=== PATIENT | female | born 1990 | race American Indian/Alaskan Native ===

== ENCOUNTER → 2021-11-28 14:18 | Outpatient (CLI) | payer OTHER, SELFPAY ==
--- NOTE | 2021-11-28 14:21 | DI.RAD.S_ITS ---
PROCEDURE: XR THORACIC SPINE 3V INDICATIONS: disc dz, osteophyte? TECHNIQUE: 3 views of the thoracic spine were acquired. COMPARISON: None. FINDINGS: Bones: No fractures or dislocations. No suspicious bony lesions. 12 pairs of ribs are noted, and appear intact where visualized. Soft tissues: No paravertebral stripe thickening. IMPRESSION: Thoracic spine without acute fracture or malalignment. No significant degenerative change. Dictated by: Hansel Flores M.D. on 11/28/2021 at 16:31 Approved by: Hansel Flores M.D. on 11/28/2021 at 16:32
--- NOTE | 2021-11-28 14:21 | DI.RAD.S_ITS ---
PROCEDURE: XR CERVICAL SPINE 2V OR 3V INDICATIONS: disc dz, osteophyte? TECHNIQUE: 3 view(s) of the cervical spine were acquired. COMPARISON: None. FINDINGS: Bones: No fractures or dislocations to the T1 level. The lateral masses of C1 appear intact on the odontoid view. No suspicious bony lesions. Straightening of cervical lordosis which may be due to patient positioning and/or concurrent muscle spasms. Soft tissues: No prevertebral soft tissue swelling. IMPRESSION: Cervical spine without acute fracture. Mild straightening of normal cervical lordosis likely related to positioning and/or concurrent muscle spasms. No significant spondylitic changes identified. Dictated by: Hansel Flores M.D. on 11/28/2021 at 16:33 Approved by: Hansel Flores M.D. on 11/28/2021 at 16:34
== END ==
PROVIDERS: PCP Pediatrics; Referring Provider Pediatrics; Visit Provider Pediatrics
DX: M54.2 Cervicalgia (principal); R20.0 Anesthesia of skin; G89.29 Other chronic pain
CPT/HCPCS: 72040; 72072

== ENCOUNTER → 2022-02-16 14:23 | Outpatient (CLI) | payer OTHER, SELFPAY | PROVIDERS: Family Provider Pediatrics; PCP Family Medicine; Referring Provider Pediatrics; Visit Provider Pediatrics | DX: R20.0 Anesthesia of skin (principal); M54.2 Cervicalgia; G89.29 Other chronic pain | CPT/HCPCS: 95886; 95912 ==

== ENCOUNTER → 2022-05-13 15:50 | Outpatient (CLI) | payer OTHER, SELFPAY ==
[2022-05-13 16:39] LABS: Influenza A - CEPHEID Flu A POSITIVE (NEGATIVE); Influenza B - CEPHEID Flu B NEGATIVE (NEGATIVE); Respiratory Syncytial Virus Negative (Negative)
[2022-05-13 16:52] LABS: COVID-19 CEPHEID 4-PLEX PCR Negative (Negative)
== END ==
PROVIDERS: Family Provider Pediatrics; PCP Family Medicine; Visit Provider Nurse Practitioner Family
DX: J06.9 Acute upper respiratory infection, unspecified (principal); Z20.822 Contact with and (suspected) exposure to COVID-19
CPT/HCPCS: 0241U

== ENCOUNTER → 2022-10-02 16:54 | Outpatient (CLI) | payer OTHER, SELFPAY ==
[2022-10-02 17:33] LABS: Hemoglobin 10.2 g/dL (12.0-16.0); Mean Corpuscular HGB Conc 31.8 % (30-36); Mean Corpuscular Hemoglobin 22.5 PG (26-34); Mean Corpuscular Volume 70.8 fL (80-100); Platelet Count 339 X10^3/uL (150-400); Red Blood Cell Count 4.53 X10^6/uL (4.0-5.2); Red Cell Distribution Width 17.2 % (11.6-14.8); White Blood Cell Count 5.9 X10^3/uL (4.5-11.0)
[2022-10-02 18:19] LABS: BUN Creatinine Ratio 19.4 (6-22); Blood Urea Nitrogen 14 mg/dL (7-17); Calcium 8.9 mg/dL (8.4-10.2); Carbon Dioxide 27 mmol/L (22-32); Chloride 104 mmol/L (98-107); Estimated Glomerular Filt Rate > 60 mL/min (>60); Glucose 82 mg/dL (70-100); HEMOLYSIS < 15 (0-50); Potassium 3.7 mmol/L (3.4-5.1); Sodium 140 mmol/L (137-145)
[2022-10-02 18:49] LABS: TSH w/ Reflex to FT4 0.82 uIU/mL (0.47-4.68)
[2022-10-04 21:22] LABS: Deamidated Gliadin Ab IgA 3 units (0-19); Deamidated Gliadin Ab IgG 3 units (0-19); Immunoglobulin A,Qn 183 mg/dL (87-352); t-Transglutaminase IgA <2 U/mL (0-3)
[2022-10-06 12:36] LABS: Almond IgE <0.10 kU/L (Class 0); Cashew Nut IgE <0.10 kU/L (Class 0); Codfish Allergy IgE < 0.10 kU/L (Class 0); Egg White IgE <0.10 kU/L (Class 0); Hazelnut IgE <0.10 kU/L (Class 0); Milk IgE <0.10 kU/L (Class 0); Peanut IgE <0.10 kU/L (Class 0); Salmon Allergy IgE < 0.10 kU/L (Class 0); Scallop Allergy IgE < 0.10 kU/L (Class 0); Sesame seed Allergy IgE < 0.10 kU/L (Class 0); Shrimp IgE <0.10 kU/L (Class 0); Soybean IgE <0.10 kU/L (Class 0); Tuna Allergy IgE < 0.10 kU/L (Class 0); Walnut IgE <0.10 kU/L (Class 0); Wheat Allergy IgE < 0.10 kU/L (Class 0)
== END ==
PROVIDERS: Family Provider Pediatrics; PCP Family Medicine; Referring Provider Nurse Practitioner Family; Visit Provider Nurse Practitioner Family
DX: R14.0 Abdominal distension (gaseous) (principal); K21.9 Gastro-esophageal reflux disease without esophagitis; R11.0 Nausea; F41.1 Generalized anxiety disorder; F41.0 Panic disorder [episodic paroxysmal anxiety]
CPT/HCPCS: 36415; 80048; 82784; 83516; 84443; 85027; 86003

== ENCOUNTER → 2022-10-05 15:30 | Outpatient (CLI) | payer OTHER, SELFPAY ==
[2022-10-05 17:00] LABS: Reticulocyte Count, Percent 1.3 % (1.1-2.6)
[2022-10-05 18:00] LABS: HEMOLYSIS < 15 (0-50); Iron 29 ug/dL (37-170)
[2022-10-05 18:12] LABS: Percent Iron Saturation 6 % (15-50); Total Iron Binding Capacity 478 ug/dL (265-497); Transferrin 340 mg/dL (206-381)
[2022-10-05 18:38] LABS: Ferritin 4 ng/mL (6-137)
[2022-10-05 19:09] LABS: Folate 19.8 ng/mL (2.76-20.0); Vitamin B12 594 pg/mL (239-931)
== END ==
PROVIDERS: Family Provider Pediatrics; PCP Family Medicine; Referring Provider Nurse Practitioner Family; Visit Provider Nurse Practitioner Family
DX: D64.9 Anemia, unspecified (principal); N94.4 Primary dysmenorrhea
CPT/HCPCS: 36415; 82607; 82728; 82746; 83540; 83550; 85045

== ENCOUNTER → 2023-01-23 16:30 | Outpatient (CLI) | payer OTHER, SELFPAY ==
--- NOTE | 2023-01-23 16:31 | DI.US.S_ITS ---
PROCEDURE: US PELVIC COMPLETE INDICATIONS: DYSMENORRHEA, MENORRHAGIA, IRREGULAR PERIODS TECHNIQUE: Real-time scanning was performed of the pelvic organs, with image documentation. Additional endovaginal scanning was necessary due to incomplete visualization of the adnexal and endometrial structures by transabdominal scanning. COMPARISON: US, US PELVIC COMPLETE WITH TRANSVAGINAL, 10/16/2017, 11:15. FINDINGS: Uterus: Uterus is retroverted and normal in size at 7.3 x 4.7 x 5.6 cm. The myometrium is heterogeneous. The endometrium measures 8.0 mm combined thickness. Ovaries: The right ovary measures 4.1 x 1.9 x 2.4 cm, with a calculated ovarian volume of 9.6 cc. The left ovary measures 4.0 x 2.4 x 2.5 cm, with a calculated ovarian volume of 12.4 cc. The ovaries have a normal sonographic appearance. Greater than 12 follicles can be seen in each ovary. No adnexal masses are seen. Other: No pathologic free abdominal or pelvic fluid. IMPRESSION: 1. Heterogeneous appearance of the myometrium which can be associated with adenomyosis in the appropriate clinical setting. 2. Greater than 12 sub-5 mm follicular cysts bilaterally which can be associated with polycystic ovarian morphology. We strive to produce accurate, complete, and clear reports of imaging services. To assist us in improving patient care, this report was composed using standard report templates and voice recognition software. Therefore, it may contain abnormal punctuation, insertions and/or omissions. Occasional wrong-word or sound-alike substitutions may occur. Though we review the report and make efforts to correct it, we do recommend that the report be read carefully in proper context to recognize any text inaccuracies. Dictated by: Abhijeet Huang [facility] Interpreted: Jani Jacobo MD on 01/23/2023 at 20:10 Transcribed by: KAROLINE on 01/24/2023 at 8:07 Approved by: Jani Jacobo M.D. on 01/24/2023 at 12:06
== END ==
PROVIDERS: Family Provider Pediatrics; PCP Family Medicine; Referring Provider Family Medicine; Visit Provider Family Medicine
DX: N83.02 Follicular cyst of left ovary (principal); N92.1 Excessive and frequent menstruation with irregular cycle; N83.01 Follicular cyst of right ovary
CPT/HCPCS: 76830; 76856; 93975

== ENCOUNTER 2023-07-26 12:30 | Day surgery (SDC) | payer OTHER, SELFPAY ==
[2023-07-24 15:21] VITALS: BMI 26.7
[2023-07-26] VITALS (7 sets, daily range): BP systolic 117–130; BP diastolic 57–80; PULSE 60–111; RESP 12–16; TEMP 36.1–36.4; O2SAT 95–98; BMI 26.7
--- NOTE | 2023-07-26 | PATH_ITS ---
[facility] Accession Number: [id number] No. of containers..01 Tissue . 01 Material submitted: . uterus - UTERUS AND BILATERAL FALLOPIAN TUBES . 01 Diagnosis: UTERUS AND BILATERAL FALLOPIAN TUBES: Late proliferative phase endometrium. Negative for significant cytologic atypia, hyperplasia, and malignancy. Negative for adenomyosis, on sales representative facility services sections. Benign bilateral fallopian tubes. Minute nodular fragment of tissue with features suggestive of benign fibroma, 4 mm in diameter. Negative for atypia and malignancy. MRV 07/30/2023 1559 Local . 01 Comment: As part of ongoing quality control expert, slide A3 has also been reviewed with STRUCTURAL STEEL DETAILER pathologist, Dr. Sherly Posey, who agrees with the interpretation. . 01 Electronically signed: . Timothy Mitchell MD, Pathologist NPI- [id number] . 01 Gross description: . The specimen is received in formalin labeled with the patient's name, , and uterus and bilateral fallopian tubes, and consists of multiple morcellated fragments of pink-breaux cervical tissue aggregating to 11.4 x 7.8 x 3.7 cm and weighing 67 grams. The serosal surfaces are pink-breaux, smooth, and unremarkable. A cervix is not identified. A scanty amount of possible endometrium is noted measuring 0.2 cm in thickness with an underlying myometrium measuring up to 2.3 cm in thickness. The cut surfaces are pink-breaux and trabecular with no leiomyomatous nodules or other abnormalities seen. . Also received in the container are two detached, unoriented, violaceous, fimbriated fallopian tubes. The first measures 5.5 cm in length and 0.7 cm in diameter. The second measures 7.7 cm in length and up to 0.7 cm in diameter. A single firm white paratubal nodule is noted measuring 0.4 cm in greatest dimension. . Mirror Department Supervisor sections are submitted as follows: A1-A2: Possible endometrium with underlying myometrium. A3: First fallopian tube, fimbriae, and paratubal nodule, entirely submitted. A4: Second fallopian tube, fimbriae, entirely submitted. ([id number]) /JORDAN 07/30/2023 1559 Local . 01 Pathologist provided ICD-10: N92.1, Z86.2 . 01 CPT . 289115 Specimen Comment: A courtesy copy of this report has been sent to [phone] Performed at: 01 [facility] [address] [place] [address] Suite [facility], [place], [place] [id number] MD Mike Hsieh MD Phone: [phone]
--- NOTE | 2023-07-26 12:39 | PM.GYNHP.1 ---
History of Present Illness History of Present Illness Narrative: Adamaris Powers is a 32 year old female [facility] Medical History Chronic neck pain Encounter for well adult exam without abnormal findings Generalized anxiety disorder with panic attacks Iron deficiency anemia Left arm numbness PCOS (polycystic ovarian syndrome) Primary dysmenorrhea Social History household members: spouse Smoking Status: Former smoker Tobacco: How many years used: 2 alcohol intake: current substance use type: does not use Meds Home Medications and Allergies Home Medications Medication Instructions Recorded Confirmed Type oxycodone 5 mg tablet 5 mg PO Q4H PRN pain #14 tabs 07/23/23 07/23/23 Rx Allergies Allergy/AdvReac Type Severity Reaction Status Date / Time sulfamethoxazole Allergy Mild Hives Verified 07/23/23 16:01 [From Bactrim] trimethoprim [From Bactrim] Allergy Mild Hives Verified 07/23/23 16:01
[2023-07-26] MEDS: LACTATED RINGERS 1,000 ML 42 ML IV ×2 (13:12→14:44)
[2023-07-26] MEDS: ACETAMINOPHEN 325 MG TABLET 975 MG PO (13:21)
--- NOTE | 2023-07-26 14:22 | PM.PREOP ---
Pre-operative Note Interval Note History & Physical reviewed/Exam performed by Physician: Yes Changes to H&P: No H&P completed within 30 days and has changed as indicated here:: 07/23/23
[2023-07-26] MEDS: SCOPOLAMINE 1 PATCH TOP (14:41)
[2023-07-26] MEDS: LACTATED RINGERS 1,000 ML 21 ML IV (14:45)
--- NOTE | 2023-07-26 15:28 | SUR.OPER ---
Lithotomy on padded OR bed. [place] Pad Positioner under torso. Head on pillow, arms padded and tucked at sides. Legs secured in padded yellow fins stirrups.
[2023-07-26] MEDS: BUPIVACAINE 0.5% (PF) 30 ML, EPINEPHrine 0.15 MG INJ (15:41)
[2023-07-26] MEDS: CEFAZOLIN 2 GM/100 ML PREMIX 100 ML IV (15:47)
--- NOTE | 2023-07-26 16:27 | PM.GYNOP.1 ---
Operative Date/Time/Diagnoses Date of procedure: 07/26/23 Time of procedure: 16:27 Pre-op diagnosis: Dysmenorrhea Menometrorrhagia Post-op diagnosis: same Procedure & Clinicians Procedure: Procedures Operation Date: 07/26/23 13:45 Actual Procedure Side Surgeon p Laparoscopic Supracervical Hysterectomy with bilateral salpingectomies, fulguration of endometriosis Not Applicable Tara Mitchell MD Indications: 32-year-old 0 with primary dysmenorrhea and menometrorrhagia. Family history of endometriosis. Surgeon: Tara Mitchell Ice Cream Truck Driver: Nicole Martinez Anesthesia Type: General and Local Operative Notes Findings: 7 week size anteverted uterus Normal tubes and ovaries Normal liver and gallbladder Normal appendix Endometriosis in the posterior cul-de-sac Closure Type: primary Specimen(s): left tube, right tube and uterus Applied: catheter (Removed at the end of the case) Estimated blood loss (mL): 10 Blood products transfused: none Procedure in detail: The patient was taken to the operating room where she was placed in the dorsal supine position. After adequate general endotracheal anesthesia was achieved, she was placed in the dorsal lithotomy position, and prepped and draped in the usual sterile fashion. A time-out was performed. A bivalve speculum was placed into the vagina and the anterior lip of the cervix grasped with a single-tooth tenaculum. The cervical os was sequentially dilated until the Zumi uterine manipulator could pass easily into the endometrial cavity. The single-tooth tenaculum was removed from the anterior lip of the cervix. The bivalve speculum was removed from the vagina. Attention was turned to the abdomen where 6 cc of 0.5% Marcaine with epinephrine were injected in the umbilical fold. A 5 mm incision was made. The Veress needle was placed into the peritoneal cavity, and its placement confirmed by aspiration and drop test. The abdominal cavity was insufflated with 3.2 L of CO2. The Veress needle was removed, and a 5 mm trocar was placed without difficulty. Two other 5 mm trocars were placed after 6 cc of 0.5% Marcaine with epinephrine were injected and 5 mm incisions were made. These were 4 cm lateral to the midline at the level of the umbilicus. Abdomen and pelvis were examined with findings noted above. The right tube was grasped with an atraumatic grasper. The mesosalpinx was cauterized and cut with the power seal, all the way down to the cornua of the uterus. The tube was amputated at the cornua, and the tube removed through the side trocar. The utero-ovarian vessels were cauterized and cut with the power seal. The broad ligament and round ligament were cauterized and cut with the power seal. The bladder flap was created using cautery and cut with the power seal. The uterine arteries on the right side were cauterized and cut. All of this was repeated on the patient's left side. The Marilyn loop was placed around the cervix 2 cm above the uterosacral ligaments. The Zumi uterine manipulator was removed from the uterus and a moistened sponge stick placed into the vagina. The uterus was amputated from the cervix. No bleeding was noted. The spatula cautery was used to cauterize the endocervical canal and the endometriosis lesions in the posterior cul-de-sac. 6 cc of 0.5% Marcaine with epinephrine were injected in the midline above the pubic symphysis. A 12 mm incision was made. A 12 mm trocar was placed under direct visualization. A large endobag was placed into the peritoneal cavity. The uterus was placed into the bag. The trocar was removed. The edges of the bag were brought up through the skin. Using the Grace scissors, the fascia was slightly extended. The uterus was grasped with a Jenni. The small Juno was placed into the bag. The uterus was morcellated in approximately 4 pieces. The bag and the Juno were removed from the incision. The fascia was reapproximated using 0 Vicryl in a running fashion. Two simple interrupted sutures with 3-0 Vicryl were placed in the subcutaneous layer. The abdomen was re-insufflated with carbon dioxide gas. There was no bleeding noted. 20 cc of 0.2% ropivacaine were placed over the pedicles. The instruments were removed from the abdomen. The CO2 was allowed to escape. The incisions were closed with 4-0 Monocryl in a subcuticular fashion. Steri-Strips and Allevyn dressings were placed. The moistened sponge stick was removed from the vagina. Sponge, lap, and instrument counts were correct x2. The patient tolerated the procedure well, and was taken to PACU in stable condition. Complications: none Post-operative Condition: stable Disposition: PACU Plan for aftercare: Home after recovery
[2023-07-26] MEDS: OXYCODONE IR 5 MG TABLET PO (16:39)
== END 2023-07-26 17:09 | disposition home or self-care (01) ==
LOC: OR 12:38 → AC 12:39 → OR 12:40
PROVIDERS: Family Provider Pediatrics; PCP Family Medicine; Referring Provider Obstetrics & Gynecology; Visit Provider Obstetrics & Gynecology
PROC: 0UT94ZL Resection of Uterus, Supracervical, Percutaneous Endoscopic Approach (ICD-10-PCS; CPT 58542; principal; 2023-07-26 13:45)
DX: N92.1 Excessive and frequent menstruation with irregular cycle (principal); N94.6 Dysmenorrhea, unspecified; N80.329 Endometriosis of the posterior cul-de-sac, unspecified depth
CPT/HCPCS: 58542; 58662; J0171; J0690; J1100; J1170; J1885; J2250; J2405; J2704; J2765; J3010; J3490

== ENCOUNTER → 2024-01-23 15:19 | Outpatient (CLI) | payer OTHER, SELFPAY ==
--- NOTE | 2024-01-23 15:19 | DI.US.S_ITS ---
PROCEDURE: US ABDOMEN LIMITED INDICATIONS: BILIARY COLIC, ACID REFLUX TECHNIQUE: Real-time scanning was performed of the abdominal and retroperitoneal organs, with image documentation. COMPARISON: None. FINDINGS: Liver: Measures 14.4 cm. Anterior right lobe of the liver echogenic heterogeneous mass measuring 1.6 x 1.4 x 1.3 cm. Gallbladder: Nondilated. Small gallbladder polyp measuring 0.2 cm. No further follow-up required. Normal gallbladder wall thickness. No pericholecystic fluid. Negative sonographic Ramos's sign. Biliary ducts: Intrahepatic bile ducts are non-dilated. Extrahepatic bile duct caliber measures 4 mm. Normal is 6-7 mm or less in diameter, or 10 mm or less post-cholecystectomy. Pancreas: Visualized portions of the pancreas are sonographically normal. Miscellaneous: No free abdominal fluid. IMPRESSION: 1. Echogenic mass in the liver measuring 1.4 cm. This could represent a benign hemangioma. -Recommend more definitive characterization with multiphase liver CT or MRI. 2. No acute cholecystitis. No definite gallstones. 3. Tiny gallbladder polyp measuring 0.2 cm. No further imaging follow-up required. Dictated by: Lee Pepper M.D. on 01/24/2024 at 14:50 Approved by: Lee Pepper M.D. on 01/24/2024 at 14:53
== END ==
PROVIDERS: Family Provider Pediatrics; PCP Family Medicine; Referring Provider Family Medicine; Visit Provider Family Medicine
DX: K80.50 Calculus of bile duct without cholangitis or cholecystitis without obstruction (principal); K21.9 Gastro-esophageal reflux disease without esophagitis; K76.9 Liver disease, unspecified
CPT/HCPCS: 76705

== ENCOUNTER → 2024-01-30 14:15 | Outpatient (CLI) | payer OTHER, SELFPAY ==
--- NOTE | 2024-01-30 14:16 | DI.CT.S_ITS ---
PROCEDURE: CT ABDOMEN LIVER PROTOCOL INDICATIONS: Liver mass seen on US TECHNIQUE: 4 phase scanning was performed. Non-contrast 5 mm axial sections acquired from the diaphragm to the iliac crests. Following the administration of intravenous contrast, 5 mm thick arterial-phase, portal venous-phase, and 5-minute delayed phase images were acquired through the liver. 5 mm thick coronal and sagittal reformats were performed. For radiation dose reduction, the following was used: automated exposure control, adjustment of mA and/or kV according to patient size. COMPARISON: [facility], US, US ABDOMEN LIMITED, 01/23/2024, 15:27. FINDINGS: Image quality: Excellent. Lower chest: Unremarkable. ABDOMEN: Liver: Elongation of the left hepatic lobe. Otherwise normal liver morphology and smooth margin. 1.1 x 1.0 cm hepatic hypodensity present laterally in segment 5/8 demonstrates nodular and wispy enhancement on arterial phase and homogeneous mild diffuse enhancement on venous phase. It follows blood pool density and is barely visible on delayed phase imaging. This probably corresponds to the ultrasound finding is consistent with a benign hemangioma. No other liver lesions. Gallbladder: Phrygian cap morphology. Otherwise normal gallbladder. Biliary ducts: No biliary dilation. Pancreas: Normal size and morphology without visible ductal dilatation or inflammation. Spleen: Size is within normal limits. Adrenal Glands: No adrenal nodules. Kidneys and Ureters: Symmetric enhancement. No nephrolithiasis or hydronephrosis. No hydroureter. Stomach and Bowel: Stomach and visible bowel loops are within normal limits. Peritoneum: No abnormal intraperitoneal fluid. No free air. Ventral Wall: No hernia. Abdominal Nodes: No retroperitoneal or mesenteric adenopathy by size criteria. Vessels: The abdominal aorta, IVC, and portal vein are of normal caliber. PELVIS: Pelvic Organs: Unremarkable. Bladder: Unremarkable. Pelvic Nodes: No enlarged lymph nodes. Miscellaneous: No inguinal hernias are seen. Bones: No aggressive osseous abnormality. IMPRESSION: Findings of a benign hemangioma in the liver corresponding to the ultrasound finding. No other suspicious liver lesion. Dictated by: Luisa Leonard M.D. on 01/30/2024 at 19:21 Approved by: Luisa Leonard M.D. on 01/30/2024 at 19:28
== END ==
PROVIDERS: Family Provider Pediatrics; PCP Family Medicine; Referring Provider Family Medicine; Visit Provider Family Medicine
DX: R16.0 Hepatomegaly, not elsewhere classified (principal); D18.09 Hemangioma of other sites
CPT/HCPCS: 74170

== ENCOUNTER → 2024-06-12 13:12 | Outpatient (CLI) | payer OTHER, SELFPAY ==
[2024-06-12 14:04] LABS: Add Manual Diff / Slide Review NO; Basophils Absolute Auto 0 /uL (0-100); Basophils Percent Auto 0.5 % (0-2); Eosinophils Absolute Auto 200 /uL (0-450); Eosinophils Percent Auto 2.2 % (2-4); Hematocrit 40.6 % (36-46); Hemoglobin 13.8 g/dL (12.0-16.0); Lymphocytes Absolute Auto 2100 /uL (1100-4500); Lymphocytes Percent Auto 24.5 % (25-40); Mean Corpuscular HGB Conc 33.9 % (30-36); Mean Corpuscular Volume 85.5 fL (80-100); Monocytes Absolute Auto 700 /uL (0-900); Monocytes Percent Auto 7.7 % (3-14); Neutrophils Absolute Auto 5500 /uL (1500-7000); Neutrophils Percent Auto 65.1 % (50-75); Platelet Count 386 X10^3/uL (150-400); Red Blood Cell Count 4.75 X10^6/uL (4.0-5.2); Red Cell Distribution Width 13.7 % (11.6-14.8); White Blood Cell Count 8.4 X10^3/uL (4.5-11.0)
[2024-06-12 14:11] LABS: Reticulocyte Count, Percent 1.6 % (1.1-2.6)
[2024-06-12 14:24] LABS: HEMOLYSIS < 15 (0-50); Iron 117 ug/dL (37-170)
[2024-06-12 15:51] LABS: Percent Iron Saturation 36 % (15-50); Total Iron Binding Capacity 321 ug/dL (265-497); Transferrin 277 mg/dL (206-381)
== END ==
LOC: LAB 13:14
PROVIDERS: Family Provider Pediatrics; PCP Family Medicine; Referring Provider Family Medicine; Visit Provider Family Medicine
DX: D50.9 Iron deficiency anemia, unspecified (principal); R53.83 Other fatigue
CPT/HCPCS: 36415; 83540; 83550; 85025; 85045

== ENCOUNTER 2024-07-30 02:35 | Emergency (ER) | payer OTHER, SELFPAY ==
[2024-07-30 02:42] VITALS: BP 139/96; PULSE 81; RESP 17; TEMP 36.5; O2SAT 97; BMI 28.1
--- NOTE | 2024-07-30 03:11 | ED_ITS ---
HPI - Headache General Chief Complaint: Headache Stated Complaint: migraine, vertigo, nausea Time Seen by Provider: 07/30/24 03:11 Mode of arrival: Ambulatory History of Present Illness HPI Narrative: 33-year-old female presents for flu-like symptoms states that she has been having left-sided headache since around 3:00 p.m. she states that she has been recovering from an upper respiratory infection for the past 2 weeks with associated nausea diarrhea chest congestion/nasal congestion, however the headache is new for her. She states this is not the worst headache of her life. On exam no focal deficits NIH of 0. States that she took Tylenol ibuprofen prior to arrival with some relief but due to persistent symptoms wanted to be evaluated here in the emergency department. Related Data Home Medications Medication Instructions Recorded Confirmed omeprazole 20 mg tablet,delayed 20 mg PO DAILY 06/12/24 06/12/24 release Allergies Allergy/AdvReac Type Severity Reaction Status Date / Time sulfamethoxazole Allergy Mild Hives Verified 06/12/24 11:55 [From Bactrim] trimethoprim [From Bactrim] Allergy Mild Hives Verified 06/12/24 11:55 Review of Systems Review of Systems Narrative: General: Denies fever, chills, weight loss HEENT: Positive headache, nasal congestion, denies eye drainage, eye irritation, head trauma, sore throat, voice change Cardiovascular: Denies any chest pain, palpitations, shortness of breath, tachycardia Respiratory: Denies any shortness of breath, cough, wheeze, stridor GI/: Denies any abdominal pain, nausea, vomiting, diarrhea, bright red blood per rectum, melanotic stools, urinary frequency, urinary retention, dysuria, hematuria MSK: Denies any joint pain, muscle pains, swelling Skin: Denies any rashes, lesions, discoloration Neuro: Denies any headache, lightheadedness, dizziness, fainting, weakness Psych: Denies SI/HI Patient History Medical History (Updated 07/30/24 @ 04:38 by Bulmaro Tompkins DO) PCOS (polycystic ovarian syndrome) Primary dysmenorrhea Generalized anxiety disorder with panic attacks Chronic neck pain Surgical History (Updated 07/30/23 @ 10:45 by Tara Mitchell MD) S/P wisdom tooth extraction Social History household members: spouse Smoking Status: Former smoker Tobacco: How many years used: 2 alcohol intake: current substance use type: does not use Smoking Status: Former smoker alcohol intake frequency: holidays/special occasions only Exam Narrative Exam Narrative: General: Cooperative, comfortable, well-developed, not in acute distress HEENT: Normocephalic, atraumatic, PERRLA, normal sclera, eyelids normal, Neck: Active full range of motion, atraumatic Chest: Normal to inspection, negative crepitus, no overlying erythema ecchymosis Respiratory: Normal respiratory effort, not in acute respiratory distress, clear to auscultation bilaterally negative cough, wheeze, tachypnea, rhonchi, rales Cardiology: Regular rate rhythm negative gallop, murmur, rubs GI/: Normal to inspection, soft, nonrigid, no tenderness to palpation, exam deferred MSK: Full range of active range of motion of all 4 extremities, atraumatic Skin: No rashes lesions noted Neuro: NIH of 0, no focal deficits noted, Alert awake oriented x3, moves all 4 extremities spontaneously, cranial nerves intact, able to answer all questions appropriately follows commands appropriately Psych: Cooperative, negative suicidal or homicidal ideations Initial Vital Signs Initial Vital Signs: Vital Signs Temperature 97.7 F 07/30/24 02:42 Pulse Rate 81 07/30/24 02:42 Respiratory Rate 17 07/30/24 02:42 Blood Pressure 139/96 H 07/30/24 02:42 Pulse Oximetry 97 07/30/24 02:42 Oxygen Delivery Method Room Air 07/30/24 02:42 Course Orders Ordered: ED Orders 07/30/24 03:35 Basic Metabolic Panel Stat Complete Blood Count AUTO DIFF Stat Covid-19 + FLU A/B + RSV - PCR Stat Discontinued Medications Dexamethasone (Dexamethasone 10 Mg/Ml Vial) 10 mg IV NOW ONE Stop: 07/30/24 03:17 Last Admin: 07/30/24 03:46 Dose: 10 mg Documented By: ESTEBAN Diphenhydramine HCl (Diphenhydramine 50 Mg/Ml Vial) 25 mg IV NOW ONE Stop: 07/30/24 03:17 Last Admin: 07/30/24 03:47 Dose: 25 mg Documented By: ESTEBAN Sodium Chloride (Normal Saline 0.9%) 1,000 mls @ 1,000 mls/hr IV BOLUS ONE Stop: 07/30/24 04:15 Last Infusion: 07/30/24 04:34 Dose: Infused Documented By: Admin: 07/30/24 03:41 Dose: 1,000 mls/hr Documented By: ESTEBAN Prochlorperazine (Prochlorperazine 10 Mg/2 Ml Vial) 10 mg IV NOW ONE Stop: 07/30/24 03:17 Last Admin: 07/30/24 03:44 Dose: 10 mg Documented By: ESTEBAN Vital Signs Vital signs: Vital Signs - 8 hr 07/30/24 02:42 07/30/24 03:44 Temperature 97.7 F Pulse Rate 81 71 Respiratory Rate 17 Blood Pressure 139/96 H 139/88 Pulse Oximetry 97 Oxygen Delivery Method Room Air MDM - Headache Differential Diagnosis Differential diagnosis: Likely migraine, tension headache, headache, sinusitis and other (COVID, flu, RSV) Lab Data 07/30/24 03:35 07/30/24 03:35 Labs: Lab Results 07/30/24 Range/Units 03:35 WBC 8.8 (4.5-11.0) X10^3/uL RBC 4.70 (4.0-5.2) X10^6/uL Hgb 13.3 (12.0-16.0) g/dL Hct 39.8 (36-46) % MCV 84.7 (80-100) fL MCH 28.2 (26-34) PG MCHC 33.3 (30-36) % RDW 13.8 (11.6-14.8) % Plt Count 387 (150-400) X10^3/uL Neut % (Auto) 57.2 (50-75) % Lymph % (Auto) 32.6 (25-40) % Louisa % (Auto) 6.8 (3-14) % Eos % (Auto) 2.5 (2-4) % Baso % (Auto) 0.9 (0-2) % Neut # (Auto) 5000 (4039-9503) /uL Lymph # (Auto) 2900 (1416-0219) /uL Louisa # (Auto) 600 (0-900) /uL Eos # (Auto) 200 (0-450) /uL Baso # (Auto) 100 (0-100) /uL Sodium 139 (137-145) mmol/L Potassium 3.6 (3.4-5.1) mmol/L Chloride 106 (98-107) mmol/L Carbon Dioxide 24 (22-32) mmol/L BUN 10 (7-17) mg/dL Creatinine 0.77 (0.52-1.04) mg/dL Estimated GFR > 60 (>60) mL/min BUN/Creatinine Ratio 13.0 (6-22) Glucose 93 (70-100) mg/dL Calcium 9.3 (8.4-10.2) mg/dL SARS-CoV-2 (PCR) Negative (Negative) Influenza A (RT-PCR) Flu a negative (NEGATIVE) Influenza B (RT-PCR) Flu b negative (NEGATIVE) RSV (PCR) Negative (Negative) MDM Narrative Medical decision making narrative: 33-year-old female without any significant past medical history comes into the ED for evaluation of left-sided headache, states that this started spontaneously around 3:00 p.m. on 07/29/2025. States that she has been suffering from upper respiratory infection for the past 2 weeks associated nausea diarrhea and nasal congestion, however she denies any focal deficits denies any visual disturbances. Denies any trauma or falls. Not on any blood thinners no chest pain shortness of breath fever chills abdominal pain or any other GI/ symptoms time. Patient did have lab work performed here without any acute abnormalities. Patient had saline, Compazine, Benadryl, Decadron here in the emergency department 0435: Patient re-evaluated no new complaints at this time, significant improvement of symptoms after administration medication, patient states that they do not want to wait for the respiratory panel, strict return precautions given they verbalized understanding of this and agrees to being discharged home with outpatient follow up Discharge Plan Departure Patient Disposition: Home Clinical Impression: Headache Instructions: DI for Headache Activity Restrictions/Additional Instructions: Please follow up with the primary care doctor Please read the discharge instructions sheet carefully and bring all papers to all doctor follow-up visits, as it may contain information that your doctor may want to see. Disease processes change and evolve, if your symptoms worsen or if you develop any new symptoms that are concerning to you please return for evaluation. Your evaluation today does not show any evidence of any life- threatening/serious illnesses requiring admission to the hospital or surgery. Please follow-up with your doctor for re-evaluation in approximately 1 day. Seek immediate medical attention for any worrisome symptoms. *If you do not have a primary care provider please contact the [facility] Resource line at [phone]. They will ask some questions about your medical history and help get you set up with a doctor in the community. Prescriptions: No Action omeprazole 20 mg tablet,delayed release (DR/EC) 20 mg PO DAILY Referrals: Lisa Carpio DO [Primary Care Provider] - Stand Alone Forms: Patient Portal/API/Survey
[2024-07-30 03:41] LABS: Add Manual Diff / Slide Review NO; Basophils Absolute Auto 100 /uL (0-100); Basophils Percent Auto 0.9 % (0-2); Eosinophils Absolute Auto 200 /uL (0-450); Eosinophils Percent Auto 2.5 % (2-4); Hematocrit 39.8 % (36-46); Hemoglobin 13.3 g/dL (12.0-16.0); Lymphocytes Absolute Auto 2900 /uL (1100-4500); Lymphocytes Percent Auto 32.6 % (25-40); Mean Corpuscular HGB Conc 33.3 % (30-36); Mean Corpuscular Hemoglobin 28.2 PG (26-34); Mean Corpuscular Volume 84.7 fL (80-100); Monocytes Absolute Auto 600 /uL (0-900); Monocytes Percent Auto 6.8 % (3-14); Neutrophils Absolute Auto 5000 /uL (1500-7000); Neutrophils Percent Auto 57.2 % (50-75); Platelet Count 387 X10^3/uL (150-400); Red Cell Distribution Width 13.8 % (11.6-14.8); White Blood Cell Count 8.8 X10^3/uL (4.5-11.0)
[2024-07-30] MEDS: SODIUM CHLORIDE 0.9% 1,000 ML 1000 ML IV (03:41)
[2024-07-30 03:44] VITALS: BP 139/88; PULSE 71; O2SAT 100
[2024-07-30] MEDS: PROCHLORPERAZINE 10 MG/2 ML VIAL IV (03:44)
[2024-07-30 03:45] VITALS: BP 139/88; PULSE 71; O2SAT 99
[2024-07-30] MEDS: DEXAMETHASONE 10 MG/ML VIAL IV (03:46)
[2024-07-30] MEDS: diphenhydrAMINE 50 MG/ML VIAL 25 MG IV (03:47)
[2024-07-30 03:52] LABS: Blood Urea Nitrogen 10 mg/dL (7-17); Calcium 9.3 mg/dL (8.4-10.2); Carbon Dioxide 24 mmol/L (22-32); Chloride 106 mmol/L (98-107); Estimated Glomerular Filt Rate > 60 mL/min (>60); Glucose 93 mg/dL (70-100); HEMOLYSIS < 15 (0-50); Potassium 3.6 mmol/L (3.4-5.1); Sodium 139 mmol/L (137-145)
[2024-07-30 04:00] VITALS: PULSE 112; RESP 18; O2SAT 98
[2024-07-30 04:17] LABS: Influenza A - CEPHEID Flu A NEGATIVE (NEGATIVE); Influenza B - CEPHEID Flu B NEGATIVE (NEGATIVE); Respiratory Syncytial Virus Negative (Negative)
[2024-07-30 04:36] LABS: COVID-19 CEPHEID 4-PLEX PCR Negative (Negative)
[2024-07-30 04:48] VITALS: BP 136/88; PULSE 99; RESP 16; O2SAT 98
== END 2024-07-30 04:55 | disposition home or self-care (01) ==
PROVIDERS: Emergency Provider Student in an Organized Health Care Education/Training Program; Family Provider Pediatrics; PCP Family Medicine
DX: R51.9 Headache, unspecified (principal); R11.0 Nausea; R19.7 Diarrhea, unspecified
CPT/HCPCS: 0241U; 36415; 80048; 85025; 96361; 96374; 96375; 99284; J0780; J1100; J1200